=== PATIENT | male | born 1950 | race African-American/Black ===

== ENCOUNTER 2019-11-19 16:45 | Emergency (ER) | payer MEDICARE ==
--- NOTE | 2019-11-19 17:18 | CT ---
CT head noncontrast HISTORY: Injury. FINDINGS: There is no evidence of acute intracranial hemorrhage or infarct. Ventricles appear normal in size, shape and position. There is no mass effect or shift of midline structures. Fluid layers within the dependent portion of each maxillary sinus. Mild mucosal thickening ethmoid air cells. IMPRESSION: No acute intracranial abnormalities are demonstrated. Bilateral maxillary sinusitis.
== END 2019-11-19 18:30 | disposition home or self-care (01) ==
LOC: MADERS 16:45
DX: S09.90XA Unspecified injury of head, initial encounter (principal); J32.9 Chronic sinusitis, unspecified; I10 Essential (primary) hypertension; V43.52XA Car driver injured in collision with other type car in traffic accident, initial encounter
CPT/HCPCS: 70450